=== PATIENT | female | born 1935 | race Caucasian/White ===

== ENCOUNTER 2016-05-13 10:12 | Inpatient (IN) | payer OTHER ==
[~2016-05-13] VITALS: Ht 157.5 cm; Wt 74.2 kg
[~2016-05-13 10:12] MED LIST: AZOR 5/20 MG1 TABLET PO; BYSTOLIC5 MG PO; COMPAZINE10 MG PO; COMPLETE MULTI1 EAC1 PO; DEXILANT30 MG PO; DOMP10T PO; FOLIC ACID1 MG PO; HUMALOG MI100 UNIT/6 SC; HUMALOG100 UNIT/1 SC; IBUPROFEN800 MG PO; LANTUS 10100 UNITS/ SC; METFORMIN HCL500 MG PO; NEXIUM40 M1 PO; PHILLIPS' COLO1 EACH PO; PREDNISONE5 MG PO; SYNTHROID50 MCG PO; TREXALL10 MG PO
[2016-05-13 11:02] LABS: EOSINOPHIL (%) 2.3 % (0-5); EOSINOPHIL COUNT 0.2 K/uL (0-0.3); HEMATOCRIT 36.2 % (36.0-46.0); IMMATURE GRANULOCYTE (%) 0.1 % (0.0-0.7); IMMATURE GRANULOCYTE COUNT 0.1 K/uL; LYMPHOCYTE COUNT 1.5 K/uL (1.0-2.8); MCH 31.6 PG (29.0-34.0); MCHC 34.5 G/DL (30.0-36.0); MCV 91.6 FL (83-99); MEAN PLAT.VOLUME 10.3 uM^3 (9.5-12.4); MONOCYTE (%) 7.5 % (3-12); MONOCYTE COUNT 0.6 K/uL (0-0.8); NEUTROPHIL (%) 71.3 % (45-76); NEUTROPHIL COUNT 5.8 K/uL (1.8-6.4); PLATELET COUNT 216 K/uL (156-360); RBC DIS.WIDTH-SD 38.9 % (39-53); RED BLOOD COUNT 3.95 M/uL (3.80-5.20)
[2016-05-13 11:06] LABS: WHITE BLOOD COUNT 8.1 K/uL (4.1-10.2)
[2016-05-13 11:15] LABS: CHLORIDE 105 mEq/L (99-109); POTASSIUM 4.3 mEq/L (3.7-5.4); SODIUM 142 mEq/L (136-147)
[2016-05-13 11:18] LABS: GLUCOSE 99 mg/dL (70-99)
[2016-05-13 11:19] LABS: ANION GAP 10 MEQ/L (2-14); TOTAL BILIRUBIN 0.7 mg/dL (0.0-1.0)
[2016-05-13 11:21] LABS: ALKALINE PHOSPHATASE 79 IU/L (3-129); GFR ESTIMATE (CALCULATED) 42 mL/min/
[2016-05-13 11:22] LABS: UREA NITROGEN (BUN) 22 mg/dL (9-23)
[2016-05-13 11:23] LABS: TROP-I INTERPRETATION POSITIVE
[2016-05-13 12:05] LABS: PROTHROMBIN TIME 10.3 (9.2-11.2)
[2016-05-13] MEDS ORDERED: DEXILANT60 MG PO (13:35)
[2016-05-13] MEDS ORDERED: SYNTHROID100 MCG PO (13:36)
[2016-05-13] MEDS ORDERED: OLMESARTAN-HCT1 EAC2 PO (13:39)
[2016-05-13] MEDS ORDERED: PROLIA60 MG/1 ML SC (13:40)
[2016-05-13] MEDS ORDERED: ORENCIA250 MG/10 IV (13:41)
[2016-05-13 14:31] LABS: POINT-OF-CARE METER ID UU13113696
[2016-05-13 18:00] VITALS: BP 151/67
[2016-05-13 19:18] VITALS: BP 143/67
[2016-05-13 21:44] LABS: POINT-OF-CARE METER ID UU13113698
[2016-05-13 22:22] LABS: POINT-OF-CARE METER ID UU13113781
[2016-05-13 23:47] VITALS: BP 145/67
[2016-05-14 04:25] VITALS: BP 121/55
[2016-05-14 06:16] LABS: HEMATOCRIT 35.8 % (36.0-46.0); MCH 30.6 PG (29.0-34.0); MEAN PLAT.VOLUME 10.8 uM^3 (9.5-12.4); PLATELET COUNT 193 K/uL (156-360); RBC DIS.WIDTH-CV 12.5 % (11.8-14.6); RBC DIS.WIDTH-SD 42.2 % (39-53); RED BLOOD COUNT 3.85 M/uL (3.80-5.20); WHITE BLOOD COUNT 6.9 K/uL (4.1-10.2)
[2016-05-14 06:41] LABS: TROP-I INTERPRETATION POSITIVE
[2016-05-14 06:43] LABS: TROPONIN-I 7.03 ng/mL (0.0-0.30)
[2016-05-14 09:20] VITALS: BP 144/62
[2016-05-14] MEDS ORDERED: CLOPIDOGREL75 MG PO (10:41)
[2016-05-14] MEDS ORDERED: DOMP10T PO (10:41)
== END 2016-05-14 12:38 | disposition home or self-care (01) | DRG 282 ==
LOC: EME 10:12 → EDOF 14:09 → 4EAST 17:53
PROVIDERS: Emergency Medicine; Internal Medicine; Internal Medicine Cardiovascular Disease
DX: I21.4 Non-ST elevation (NSTEMI) myocardial infarction (principal); I25.10 Atherosclerotic heart disease of native coronary artery without angina pectoris; I35.0 Nonrheumatic aortic (valve) stenosis; I10 Essential (primary) hypertension; E78.5 Hyperlipidemia, unspecified; E11.9 Type 2 diabetes mellitus without complications; K27.9 Peptic ulcer, site unspecified, unspecified as acute or chronic, without hemorrhage or perforation; M06.9 Rheumatoid arthritis, unspecified; E03.9 Hypothyroidism, unspecified; M19.90 Unspecified osteoarthritis, unspecified site; Z96.653 Presence of artificial knee joint, bilateral; Z79.4 Long term (current) use of insulin; Z88.0 Allergy status to penicillin; Z88.5 Allergy status to narcotic agent
CPT/HCPCS: 71010; 80048; 80053; 82948; 84484; 85025; 85027; 85610; 85730; 93005; 99281; 99284; C1769; C1887; C9113; J1644; J1815; J2250; J3010; J7050

== ENCOUNTER 2017-03-14 18:09 | Inpatient (IN) | payer OTHER ==
[~2017-03-14] VITALS: Ht 157.5 cm; Wt 69.6 kg
[~2017-03-14 18:09] MED LIST changes: +CLOPIDOGREL75 MG PO; +DEXAMETHASONE4 MG PO; +DEXILANT60 MG PO; +METOPROLOL TART25 MG PO; +NORVASC5 MG PO; +OLMESARTAN-HCT1 EAC2 PO; +ORENCIA250 MG/10 IV; +PLAVIX75 MG PO; +PRAVASTATIN SOD10 MG PO; +PROLIA60 MG/1 ML SC; +SYNTHROID100 MCG PO
[2017-03-14 19:13] LABS: HEMATOCRIT 38.4 % (36.0-46.0); MCH 32.1 PG (29.0-34.0); MCHC 34.6 G/DL (30.0-36.0); MCV 92.8 FL (83-99); MEAN PLAT.VOLUME 10.8 uM^3 (9.5-12.4); PLATELET COUNT 177 K/uL (156-360); RBC DIS.WIDTH-CV 12.2 % (11.8-14.6); RBC DIS.WIDTH-SD 41.7 % (39-53); RED BLOOD COUNT 4.14 M/uL (3.80-5.20); WHITE BLOOD COUNT 7.1 K/uL (4.1-10.2)
[2017-03-14 19:23] LABS: CHLORIDE 102 mEq/L (99-109); POTASSIUM 4.7 mEq/L (3.7-5.4); SODIUM 138 mEq/L (136-147)
[2017-03-14 19:26] LABS: ANION GAP 15 MEQ/L (2-14)
[2017-03-14 19:29] LABS: GFR ESTIMATE (CALCULATED) 46 mL/min/; UREA NITROGEN (BUN) 22 mg/dL (9-23)
[2017-03-14 19:34] LABS: GLUCOSE 433 mg/dL (70-99); TROP-I INTERPRETATION NEGATIVE; TROPONIN-I < 0.01 ng/mL (0.0-0.30)
[2017-03-14] MEDS ORDERED: PLAVIX75 MG PO (21:26)
[2017-03-14] MEDS ORDERED: PREDNISONE5 MG PO (21:28)
[2017-03-14] MEDS ORDERED: ARAVA10 MG PO (21:29)
[2017-03-14] MEDS ORDERED: VITAMIN D2000 UNI1 PO (21:34)
[2017-03-15] VITALS (7 sets, daily range): BP systolic 130–180; BP diastolic 62–79
[2017-03-15 04:35] LABS: POINT-OF-CARE METER ID UU13113781
[2017-03-15 07:20] LABS: MCH 32.1 PG (29.0-34.0); MCHC 34.4 G/DL (30.0-36.0); MCV 93.3 FL (83-99); MEAN PLAT.VOLUME 10.9 uM^3 (9.5-12.4); PLATELET COUNT 148 K/uL (156-360); RBC DIS.WIDTH-CV 12.4 % (11.8-14.6); RBC DIS.WIDTH-SD 42.3 % (39-53); RED BLOOD COUNT 3.86 M/uL (3.80-5.20); WHITE BLOOD COUNT 5.6 K/uL (4.1-10.2)
[2017-03-15 07:47] LABS: ANION GAP 7 MEQ/L (2-14); CHLORIDE 106 MEQ/L (99-109); GFR ESTIMATE (CALCULATED) > 59 mL/min/; SAMPLE HEMOLYSIS CHECK 0; SAMPLE ICTERIC CHECK 0; SAMPLE LIPEMIA CHECK 0; SODIUM 141 MEQ/L (136-147); UREA NITROGEN (BUN) 18 mg/dL (9-23)
[2017-03-15 07:48] LABS: GLUCOSE 125 mg/dL (70-99); POTASSIUM 3.7 MEQ/L (3.7-5.4); TROP-I INTERPRETATION INDETERMINATE
[2017-03-15 07:50] LABS: POINT-OF-CARE METER ID UU13113698
[2017-03-15 11:35] LABS: POINT-OF-CARE METER ID UU13113781
[2017-03-15 16:49] LABS: POINT-OF-CARE METER ID UU14314088
[2017-03-15 17:02] LABS: TROP-I INTERPRETATION POSITIVE; TROPONIN-I 0.78 ng/mL (0.0-0.30)
[2017-03-15 21:09] LABS: POINT-OF-CARE METER ID UU13113698
[2017-03-16 01:03] LABS: TROP-I INTERPRETATION POSITIVE
[2017-03-16 01:14] LABS: TROPONIN-I 0.65 ng/mL (0.0-0.30)
[2017-03-16 05:39] VITALS: BP 142/66
[2017-03-16 07:00] VITALS: BP 138/69
[2017-03-16 07:30] LABS: POINT-OF-CARE METER ID UU13113781
[2017-03-16 09:47] LABS: TROP-I INTERPRETATION POSITIVE
[2017-03-16 12:24] LABS: POINT-OF-CARE METER ID UU13113781
[2017-03-16 12:44] VITALS: BP 154/68
[2017-03-16 16:36] LABS: TROP-I INTERPRETATION INDETERMINATE
[2017-03-16 16:41] VITALS: BP 174/70
[2017-03-16 16:44] LABS: POINT-OF-CARE METER ID UU14174216
[2017-03-16 19:00] VITALS: BP 124/58
[2017-03-16 21:10] LABS: POINT-OF-CARE METER ID UU13113781
[2017-03-16 23:00] VITALS: BP 173/74
[2017-03-17 01:03] LABS: TROP-I INTERPRETATION INDETERMINATE; TROPONIN-I 0.37 ng/mL (0.0-0.30)
[2017-03-17 04:30] VITALS: BP 161/59
[2017-03-17 07:18] VITALS: BP 119/57
[2017-03-17 08:21] LABS: POINT-OF-CARE METER ID UU13113781; POINT-OF-CARE USER ID NUTSLF44
[2017-03-17 09:44] LABS: TROP-I INTERPRETATION INDETERMINATE; TROPONIN-I 0.36 ng/mL (0.0-0.30)
[2017-03-17 12:14] LABS: POINT-OF-CARE METER ID UU13113781; POINT-OF-CARE USER ID NUTSLF44
[2017-03-17] MEDS ORDERED: IMDUR30 MG PO (12:20)
[2017-03-17] MEDS ORDERED: LOSARTAN POTAS100 MG PO (12:23)
[2017-03-17] MEDS ORDERED: ASPIR-LOW81 MG PO (12:23)
[2017-03-17] MEDS ORDERED: HYDROCHLOROTHIA25 MG PO (12:23)
[2017-03-17 14:24] LABS: POINT-OF-CARE METER ID UU14174216; POINT-OF-CARE USER ID NUTSLF44
== END 2017-03-17 14:10 | disposition home or self-care (01) | DRG 282 ==
LOC: EME 18:09 → 4EAST 21:21 → EDOF 21:21 → ENRESERV 21:34 → 4EAST 03-15 03:33
PROVIDERS: Family Medicine
DX: I21.4 Non-ST elevation (NSTEMI) myocardial infarction (principal); I25.10 Atherosclerotic heart disease of native coronary artery without angina pectoris; I08.0 Rheumatic disorders of both mitral and aortic valves; I10 Essential (primary) hypertension; E78.5 Hyperlipidemia, unspecified; E11.9 Type 2 diabetes mellitus without complications; K21.9 Gastro-esophageal reflux disease without esophagitis; E03.9 Hypothyroidism, unspecified; M06.9 Rheumatoid arthritis, unspecified; M19.90 Unspecified osteoarthritis, unspecified site; I25.2 Old myocardial infarction; Z79.4 Long term (current) use of insulin; Z79.82 Long term (current) use of aspirin; Z79.02 Long term (current) use of antithrombotics/antiplatelets; Z87.11 Personal history of peptic ulcer disease
CPT/HCPCS: 71020; 78452; 80048; 82948; 84484; 85027; 93005; 93017; 93306; 99281; 99285; A9500; J0360; J1650; J1815; J2785; J7030; J7512

== ENCOUNTER → 2017-04-25 | Outpatient (CLI) | payer OTHER ==
[~2017-04-25] MED LIST changes: +ARAVA10 MG PO; +ASPIR-LOW81 MG PO; +HYDROCHLOROTHIA25 MG PO; +IMDUR30 MG PO; +LOSARTAN POTAS100 MG PO; +VITAMIN D2000 UNI1 PO
== END | disposition home or self-care (01) ==
LOC: RAD 10:00
DX: K22.4 Dyskinesia of esophagus (principal); K44.9 Diaphragmatic hernia without obstruction or gangrene; K21.9 Gastro-esophageal reflux disease without esophagitis
CPT/HCPCS: 74247

== ENCOUNTER 2017-06-09 11:43 | Inpatient (IN) | payer OTHER ==
[~2017-06-09] VITALS: Ht 160 cm; Wt 68.1 kg
[~2017-06-09 11:43] MED LIST changes: +LEVEMIR100 UNIT/2 SC; +METOPROLOL SUCC25 MG PO; -METOPROLOL TART25 MG PO
[2017-06-09 15:48] LABS: HEMATOCRIT 35.2 % (36.0-46.0); MCH 30.2 PG (29.0-34.0); MCHC 34.1 G/DL (30.0-36.0); MCV 88.4 FL (83-99); PLATELET COUNT 243 K/uL (156-360); RED BLOOD COUNT 3.98 M/uL (3.80-5.20); WHITE BLOOD COUNT 9.6 K/uL (4.1-10.2)
[2017-06-09 15:57] LABS: CHLORIDE 99 mEq/L (99-109); POTASSIUM 4.2 mEq/L (3.7-5.4); SODIUM 134 mEq/L (136-147)
[2017-06-09 15:59] LABS: GLUCOSE 165 mg/dL (70-99)
[2017-06-09 16:02] LABS: CREATININE 0.9 mg/dL (0.6-1.3); GFR ESTIMATE (CALCULATED) > 59 mL/min/
[2017-06-09 16:03] LABS: UREA NITROGEN (BUN) 15 mg/dL (9-23)
[2017-06-09 16:09] LABS: TROP-I INTERPRETATION NEGATIVE; TROPONIN-I < 0.01 ng/mL (0.0-0.30)
[2017-06-09] MEDS ORDERED: PLAVIX75 MG PO (16:39)
[2017-06-09] MEDS ORDERED: IMDUR30 MG PO (16:41)
[2017-06-09] MEDS ORDERED: FENOFIBRATE160 M1 PO (16:44)
[2017-06-09] MEDS ORDERED: NITROSTAT0.4 MG SL (16:44)
[2017-06-09] MEDS ORDERED: DOMP10T PO (16:44)
[2017-06-09] MEDS ORDERED: CYMBALTA30 MG PO (16:44)
[2017-06-10 01:05] VITALS: BP 138/63
[2017-06-10 03:55] VITALS: BP 132/71
[2017-06-10 05:59] LABS: BASOPHIL (%) 0.3 % (0-1); EOSINOPHIL (%) 0.2 % (0-5); HEMOGLOBIN 10.9 G/DL (11.9-15.5); IMMATURE GRANULOCYTE (%) 0.3 % (0.0-0.7); LYMPHOCYTE (%) 15.9 % (15-42); MCH 29.3 PG (29.0-34.0); MCV 88.7 FL (83-99); MONOCYTE (%) 13.4 % (3-12); MONOCYTE COUNT 0.9 K/uL (0-0.8); NEUTROPHIL (%) 69.9 % (45-76); NEUTROPHIL COUNT 4.5 K/uL (1.8-6.4); PLATELET COUNT 195 K/uL (156-360); RBC DIS.WIDTH-CV 12.2 % (11.8-14.6); RBC DIS.WIDTH-SD 39.8 % (39-53); RED BLOOD COUNT 3.72 M/uL (3.80-5.20); WHITE BLOOD COUNT 6.4 K/uL (4.1-10.2)
[2017-06-10 09:27] VITALS: BP 175/79
[2017-06-10 16:37] VITALS: BP 186/96
[2017-06-10 17:21] LABS: HDL CHOLESTEROL 30 MG/DL (Desirable>=50); LDL CHOLESTEROL 70 mg/dL (Desirable<100); NON-HDL CHOLESTEROL 99 mg/dL (Desirable<160); TOTAL CHOLESTEROL 129 mg/dL (Desirable<200); TRIGLYCERIDES 143 MG/DL (Normal: <150)
[2017-06-10 19:00] VITALS: BP 177/79
[2017-06-11 04:00] VITALS: BP 192/81
[2017-06-11 06:20] LABS: HEMATOCRIT 32.9 % (36.0-46.0); MCH 28.7 PG (29.0-34.0); MCHC 33.4 G/DL (30.0-36.0); MCV 85.9 FL (83-99); PLATELET COUNT 188 K/uL (156-360); RBC DIS.WIDTH-CV 11.9 % (11.8-14.6); RBC DIS.WIDTH-SD 37.2 % (39-53); RED BLOOD COUNT 3.83 M/uL (3.80-5.20); WHITE BLOOD COUNT 8.6 K/uL (4.1-10.2)
[2017-06-11 06:44] LABS: ALBUMIN 3.2 G/DL (3.2-4.8); CHLORIDE 93 MEQ/L (99-109); CREATININE 0.8 MG/DL (0.6-1.3); GFR ESTIMATE (CALCULATED) > 59 mL/min/; POTASSIUM 3.9 MEQ/L (3.7-5.4); SODIUM 129 MEQ/L (136-147); UREA NITROGEN (BUN) 12 mg/dL (9-23)
[2017-06-11 06:45] LABS: ALT (GPT) 73 IU/L (3-49); AST (GOT) 81 IU/L (2-34); GLUCOSE 264 mg/dL (70-99); TOTAL BILIRUBIN 0.9 MG/DL (0.0-1.0); TOTAL PROTEIN 5.3 G/DL (6.4-8.3)
[2017-06-11 06:46] LABS: ALKALINE PHOSPHATASE 158 IU/L (3-129)
[2017-06-11 08:43] VITALS: BP 159/76
[2017-06-11 12:49] LABS: TROP-I INTERPRETATION NEGATIVE; TROPONIN-I 0.03 ng/mL (0.0-0.30)
[2017-06-11 13:08] VITALS: BP 174/73
[2017-06-11 14:24] VITALS: BP 136/86
[2017-06-11 17:58] VITALS: BP 172/92
[2017-06-11 19:31] VITALS: BP 192/89
[2017-06-11 20:36] LABS: TROP-I INTERPRETATION NEGATIVE; TROPONIN-I 0.03 ng/mL (0.0-0.30)
[2017-06-11 22:47] LABS: TROP-I INTERPRETATION NEGATIVE; TROPONIN-I 0.03 ng/mL (0.0-0.30)
[2017-06-12] VITALS (9 sets, daily range): BP systolic 139–202; BP diastolic 67–86
[2017-06-12 10:20] LABS: HEMOGLOBIN A1c (GLYCOHEMOGLOB) 7.2 % (Below 5.7)
[2017-06-13 04:21] VITALS: BP 161/73
[2017-06-13 07:53] VITALS: BP 133/56
[2017-06-13 11:01] VITALS: BP 130/78
[2017-06-13 15:16] VITALS: BP 197/83
[2017-06-14 14:33] VITALS: BP 179/79
[2017-06-15] VITALS: BP 165/74
[2017-06-15 07:50] VITALS: BP 163/84
== END 2017-06-15 16:04 | disposition hospice, home (50) | DRG 510 ==
LOC: EME 11:43 → EDOF 18:40 → 5SOUTH 18:40 → ENRESERV 18:59 → 5SOUTH 23:36
PROVIDERS: Emergency Medicine; Family Medicine
DX: S52.602B Unspecified fracture of lower end of left ulna, initial encounter for open fracture type I or II (principal); I63.531 Cerebral infarction due to unspecified occlusion or stenosis of right posterior cerebral artery; S52.502B Unspecified fracture of the lower end of left radius, initial encounter for open fracture type I or II; I25.10 Atherosclerotic heart disease of native coronary artery without angina pectoris; R40.20 Unspecified coma; E11.51 Type 2 diabetes mellitus with diabetic peripheral angiopathy without gangrene; I25.2 Old myocardial infarction; I35.0 Nonrheumatic aortic (valve) stenosis; M06.9 Rheumatoid arthritis, unspecified; I10 Essential (primary) hypertension; Y92.009 Unspecified place in unspecified non-institutional (private) residence as the place of occurrence of the external cause; W19.XXXA Unspecified fall, initial encounter; K44.9 Diaphragmatic hernia without obstruction or gangrene; R41.4 Neurologic neglect syndrome; K21.9 Gastro-esophageal reflux disease without esophagitis; E78.5 Hyperlipidemia, unspecified; Z66 Do not resuscitate; G89.4 Chronic pain syndrome; N13.30 Unspecified hydronephrosis; Z51.5 Encounter for palliative care; K57.30 Diverticulosis of large intestine without perforation or abscess without bleeding; N32.89 Other specified disorders of bladder; M19.039 Primary osteoarthritis, unspecified wrist; H53.462 Homonymous bilateral field defects, left side; E89.0 Postprocedural hypothyroidism; H53.40 Unspecified visual field defects; Z96.652 Presence of left artificial knee joint; Z86.73 Personal history of transient ischemic attack (TIA), and cerebral infarction without residual deficits; Z90.710 Acquired absence of both cervix and uterus; Z79.01 Long term (current) use of anticoagulants; Z79.4 Long term (current) use of insulin; Z90.49 Acquired absence of other specified parts of digestive tract; Z87.11 Personal history of peptic ulcer disease; Z79.899 Other long term (current) drug therapy
CPT/HCPCS: 70450; 73080; 73100; 73110; 73502; 74176; 76000; 80048; 80053; 80061; 81003; 82948; 83036; 83605; 84484; 85025; 85027; 87040; 87077; 87086; 87801; 92610 GN; 93005; 94799; 99281; 99285; C1769; C9113; J0360; J0690; J1170; J1580; J1815; J2250; J2270; J2405; J7030; J7050; S0020